=== PATIENT | male | born 1990 | race Asian ===

== ENCOUNTER 2018-10-04 16:15 | Inpatient (IN) | payer OTHER ==
[~2018-10-04] VITALS: Ht 175.3 cm; Wt 79.5 kg
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
--- NOTE | 2018-10-04 19:40 | NUR ---
LAB AT BEDSIDE FOR BLOOD DRAW.
--- NOTE | 2018-10-04 19:58 | NUR ---
INITIATED AMPILLICIN @ 200ML/HR. PLEASE SEE EMAR.
[2018-10-04 20:07] LABS: BASOPHIL % 0.4 % (0-2); PLATELET COUNT 262 x10^3mcL (130-400)
[2018-10-04 20:16] LABS: CALCIUM 9.4 mg/dL (8.5-10.1); CARBON DIOXIDE 28.7 mmol/L (21-32); CHLORIDE SERUM 104 mmol/L (98-107); CREATININE SERUM 1.2 mg/dL (0.7-1.3); GFR1 > 60 mL/min; GLUCOSE SERUM 86 mg/dL (74-106); POTASSIUM SERUM 4.4 mmol/L (3.5-5.1); SODIUM SERUM 141 mmol/L (136-145)
[2018-10-04 20:23] LABS: ALBUMIN 4.1 g/dL (3.4-5.0); ALKALINE PHOSPHATASE 52 U/L (46-116); ALT/SGPT 19 U/L (16-63); AST/SGOT 15 U/L (15-37); BILIRUBIN TOTAL 0.2 mg/dL (0.20-1.00); TOTAL PROTEIN, SERUM 7.8 g/dL (6.4-8.2)
--- NOTE | 2018-10-04 20:37 | NUR ---
INITIATED FLAGGYL @ 100ML/HR. PLEASE SEE EMAR.
--- NOTE | 2018-10-04 21:36 | NUR ---
YL COMPLETED. PT BREATHING EVEN UNLABORED. NO DISTRSESS.
--- NOTE | 2018-10-04 23:23 | NUR ---
REPORT GIVEN TO CARI.
--- NOTE | 2018-10-04 23:35 | NUR ---
PT TRANSPORTED TO [facility] VIA WHEELCHAIR. PT IN NAD
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
[2018-10-04 23:47] VITALS: BP 132/54
--- NOTE | 2018-10-04 23:50 | NUR ---
RECEIVED PT AT THIS TIME. PT AAOX4. DENIES ANY PANDA/DIZZINESS. MED SURG PT DENIES CHEST PAIN. PT BREATHING EVEN AND UNLABORED WITH NO SOB NOTED. LEFT FOOT EDEMA, DENIES ANY PAIN AT THIS TIME. NO SIGNS OF ACUTE DISTRESS NOTED. CALL BUTTON WITHIN REACH. SAFETY PRECAUTIONS IN PLACE. WILL CONTINUE TO MONITOR.
[2018-10-04 23:53] VITALS: Ht 175.3 cm; Wt 79.5 kg
--- NOTE | 2018-10-05 02:00 | NUR ---
PT RESTING. BREATHING EVEN AND UNLABORED. NO SIGNS OF DISTRESS NOTED. CALL BUTTON WITHIN REACH. SAFETY PRECAUTIONS IN PLACE. WILL CONTINUE TO MONITOR.
--- NOTE | 2018-10-05 05:12 | NUR ---
PT SLEPT MOST OF THE NIGHT WITH NO SIGNS OF DISTRESS. BREATHING EVEN AND UNLABORED. NO SIGNS OF DISTRESS. MEDICATED PER EMAR. CALL BUTTON WITHIN REACH. SAFETY PRECAUTIONS IN PLACE. WILL CONTINUE TO MONITOR AND ENDORSE CARE TO DAY SHIFT RN.
[2018-10-05 05:44] VITALS: BP 123/63
--- NOTE | 2018-10-05 07:15 | NUR ---
RECEIVED BEDSIDE REPORT FROM [employer] CL[employer] NURSE AT THIS TIME. PATIENT RESTING COMFORTABLY IN BED. NO APPARENT DISTRESS OR DISCOMFORT NOTED. BREATHING EVEN AND UNLABORED. NO RESPIRATORY DISTRESS OR DISCOMFORT NOTED. PATIENT DENIES CHEST PAIN/PRESSURE AT THIS TIME. NOTED LEFT FOOT SWOLLEN WITH SMALL PUNCTURE WOUND, FOOT IS ELEVATED. PATIENT DENIES PAIN/DISCOMFORT TO LEFT FOOT. IV PATENT AND INTACT. ALL QUESTIONS AND CONCERNS ADDRESSED. ALL NEEDS ATTENDED TO. WILL CONTINUE TO MONITOR
--- NOTE | 2018-10-05 07:26 | NUR ---
PT AWAKE, DENIES ANY PAIN. NO SIGNS OF DISTRESS NOTED. ENDORSED CARE TO DAY SHIFT RN, ALL QUESTIONS ADDRESSED.
[2018-10-05 09:45] VITALS: BP 123/69
--- NOTE | 2018-10-05 09:55 | NUR ---
MORNING MEDICATION ADMINISTERED AT THIS TIME. PATIENT TOLERATED WELL. NO ADVERSE EFFECTS NOTED. ALL NEEDS ATTENDED TO. WILL CONTINUE TO MONITOR
[2018-10-05] MEDS ORDERED: CLINDAMYCIN HC300 MG PO (11:52)
--- NOTE | 2018-10-05 12:34 | NUR ---
PATIENT SITTING UP IN BED EATING LUNCH AT THIS TIME. PATIENT TOLERATING DIET WELL. NO APPARENT DISTRESS OR DISCOMFORT NOTED. ALL NEEDS ATTENDED TO. WILL CONTINUE TO MONITOR
[2018-10-05 12:36] VITALS: BP 123/69
--- NOTE | 2018-10-05 13:45 | NUR ---
PATIENT STABLE TO BE DISCHARGED TO HOME. DISCHARGE INSTRUCTIONS GIVEN WELL EDUCATION. INSTRUCTED PATIENT ABOUT FOLLOW UP APPOINTMENT. PATIENT VERBALIZES UNDERSTANDING. IV REMOVED WITH CATH INTACT. ID BANDS REMOVED. ALL BELONGINGS WITH PATIENT. ALL QUESTIONS AND CONCERNS ADDRESSED. ALL NEEDS ATTENDED TO. ESCORTED DOWN TO THE LOBBY BY RN AT THIS TIME
== END 2018-10-05 13:45 | disposition home or self-care (01) | DRG 923 ==
LOC: ED 16:15 → MU 21:18
PROVIDERS: Emergency Medicine; ADMIT Internal Medicine
DX: T63 Toxic effect of contact with venomous animals and plants (principal); L03.116 Cellulitis of left lower limb; Z68.25 Body mass index [BMI] 25.0-25.9, adult
CPT/HCPCS: G0378; J0295; J3490; J7050

== ENCOUNTER 2018-11-21 10:51 | Emergency (ER) | payer OTHER ==
[~2018-11-21] VITALS: Ht 175.3 cm; Wt 78.0 kg
[~2018-11-21 10:51] MED LIST: CLINDAMYCIN HC300 MG PO
[2018-11-21 11:36] LABS: BASOPHIL % 0.4 % (0-2); PLATELET COUNT 257 x10^3mcL (130-400); RED CELL DISTRIBUTION WIDTH 13.7 % (11.5-14.5)
[2018-11-21 11:41] LABS: CALCIUM 8.5 mg/dL (8.5-10.1); CARBON DIOXIDE 31.1 mmol/L (21-32); CHLORIDE SERUM 105 mmol/L (98-107); CREATININE SERUM 0.9 mg/dL (0.7-1.3); GFR1 > 60 mL/min; GLUCOSE SERUM 87 mg/dL (74-106); POTASSIUM SERUM 4.6 mmol/L (3.5-5.1); SODIUM SERUM 142 mmol/L (136-145)
[2018-11-21 11:46] LABS: ALBUMIN 3.9 g/dL (3.4-5.0); ALKALINE PHOSPHATASE 55 U/L (46-116); ALT/SGPT 31 U/L (16-63); AMYLASE 62 U/L (25-115); AST/SGOT 23 U/L (15-37); BILIRUBIN TOTAL 0.4 mg/dL (0.20-1.00); LIPASE 67 IU/L (73-393); TOTAL PROTEIN, SERUM 7.6 g/dL (6.4-8.2)
[2018-11-21 13:51] VITALS: BP 126/84
== END 2018-11-21 13:51 | disposition home or self-care (01) ==
LOC: ED 10:51
PROVIDERS: Emergency Medicine
DX: R10.84 Generalized abdominal pain (principal); M54.6 Pain in thoracic spine
CPT/HCPCS: 36415